=== PATIENT | female | born 1975 | race Caucasian/White ===

== ENCOUNTER 2025-02-07 08:47 | Emergency (ER) | payer MEDICARE, SELFPAY ==
[2025-02-07 08:59] VITALS: BP 91/62; PULSE 91; RESP 16; TEMP 37; O2SAT 96
--- NOTE | 2025-02-07 09:07 | PD.EDRME ---
Rapid Medical Screening Exam RME Arrival date/time: 02/07/25 08:47 50-year-old female with a history of TMJ, hypertension presents to the emergency room with a chief complaint of her right jaw out of her socket x 2 days. Patient states she was eating pizza bit down and felt a pop on the right side of her jaw. I have greeted and performed a focused initial assessment of this patient. A comprehensive ED assessment and evaluation of the patient, analysis of all test results, and completion of the medical decision making process will be conducted by additional ED providers. Chief Complaint: Dental/Oral/Throat Time Seen by Provider: 02/07/25 08:51 Vital signs: Vital Signs Temperature 98.6 F 02/07/25 08:59 Pulse Rate 91 02/07/25 08:59 Respiratory Rate 16 02/07/25 08:59 Blood Pressure 91/62 02/07/25 08:59 Pulse Oximetry (%) 96 02/07/25 08:59 Oxygen Delivery Method Room Air 02/07/25 08:59 Vital signs reviewed by provider: Yes
--- NOTE | 2025-02-07 09:34 | XR_ITS ---
Examination: Mandible 5 views TECHNIQUE: Rodríguez, lateral, right and left sagittal oblique, Agata views of the mandible 5 views Exam date and time: February 07, 2025 1007 hours INDICATIONS: Tenderness in the right jaw beginning today. FINDINGS: Mandible appears intact No cortical bone destruction No fracture No dislocation at the temporomandibular joints IMPRESSION: No fracture or dislocation If pain persists, consider CT maxillofacial study without contrast follow-up
--- NOTE | 2025-02-07 10:43 | PD.EDDENTL ---
ED Dental RME/HPI General Chief complaint: Dental/Oral/Throat Stated complaint: RIGHT JAW OUT OF SOCKET Time Seen by Provider: 02/07/25 08:51 Arrival date/time: 02/07/25 08:47 RME / HPI RME / HPI Narrative: 02/07/25 08:47 The patient is a 50-year-old female with significant past medical history of hypertension, Neuropathy, chronic pain, history of endometriosis and hysterectomy, multiple psychiatric issue including anxiety, depression and diverticulitis including TMJ presented to the emergency room with a chief complaint of her right jaw out of her socket x 2 days. She reported that she was eating pizza bit down and felt a pop on the right side of her jaw. She admitted mild headache, but denied any lightheadedness, nausea or vomiting, sore throat, chest pain, SOB, abdominal pain, any changes in bowel or bladder habit, or leg swelling. She also denied any fever or chills. Related Data Home Medications ?Medication ?Instructions ?Recorded ?Confirmed clonazepam 0.5 mg tablet 0.5 mg PO QDAY PRN Anxiety 04/30/20 09/25/23 fluoxetine 40 mg capsule 40 mg PO BID 11/10/21 09/25/23 gabapentin 600 mg tablet 600 mg PO TID 11/10/21 09/25/23 hydrocodone 10 mg-acetaminophen 1 tab PO Q6HR PRN Severe Pain 11/10/21 09/25/23 325 mg tablet (Scale Score 7-10) leuprolide 3.75 mg intramuscular 3.75 mg QMONTH 11/10/21 11/10/21 syringe kit (Lupron Depot) loratadine 10 mg tablet (Claritin) 10 mg PO QDAY 11/10/21 11/10/21 multivitamin 1 tab PO QDAY 11/10/21 11/10/21 norethindrone (contraceptive) 0.35 3.5 mg PO QDAY 11/10/21 11/10/21 mg tablet (Norlyda) pravastatin 10 mg tablet 20 mg PO HS 11/10/21 09/25/23 tizanidine 4 mg tablet 4 mg PO TID PRN Muscle Spasm 11/10/21 11/10/21 gabapentin 600 mg tablet 600 mg PO 3XD nerve pain 09/25/23 09/25/23 hydroxyzine HCl 50 mg tablet 50 mg PO QHSPRN PRN Anxiety 09/25/23 09/25/23 losartan 50 mg tablet 75 mg PO DAILY 09/25/23 09/25/23 Previous Rx's ?Medication ?Instructions ?Recorded diazepam 2 mg tablet 2 mg PO BID PRN muscle spasm #10 12/17/22 tabs dicyclomine 10 mg capsule 10 mg PO Q4HR PRN ABDOMINAL CRAMPS 09/27/23 #15 caps vancomycin 250 mg capsule 250 mg PO QID #40 caps 09/27/23 acetaminophen 500 mg tablet 500 mg PO Q6H PRN pain #60 tabs 02/07/25 ibuprofen 400 mg tablet 400 mg PO Q8H PRN pain #30 tabs 02/07/25 Allergies Allergy/AdvReac Type Severity Reaction Status Date / Time aluminum Allergy Severe Rash Verified 02/07/25 10:38 nickel Allergy Severe Rash Verified 02/07/25 10:38 erythromycin base Allergy Unknown UNKNOWN Verified 02/07/25 10:38 latex AdvReac Intermediate Rash Verified 02/07/25 10:38 tegaderm film AdvReac Severe RASH Uncoded 02/07/25 10:38 Review of Systems Review of Systems Systems Reviewed: All systems reviewed, normal except as documented ED Exam Narrative Physical exam: General: Middle-aged, cooperative female, no acute distress, Alert and Oriented x 3 HEENT: Moist mucous membranes, oropharynx clear, anteriorly protruded jaw with malalignment of upper and lower teeth Neck: Supple, No masses, No JVD CVS: S1S2 Regular rate and rhythm, No murmurs, rubs or gallops Lungs: Clear to auscultation with no accessory use, no wheeze no rhonchi Abd: Soft, NT/ND, +BS, no organomegaly Ext: No edema, warm and well perfused Skin: No rash Psych: Appropriate mood and affect Course Course Course Narrative: 10:45 AM the patient was examined, and mild manipulation was done to reduce the TMJ 10:48 AM ordered ketorolac 30 Mg IV x 1 for pain and 50 cc of D50 W x 1 for blood sugar of 74, along with apple juice 11:11 AM reviewed TMJ x-ray Quality Measures none Orders Category Date Time Status Insert IV NOW Care 02/07/25 10:36 Active XR mandible <4V Stat Exams 02/07/25 09:34 Completed Dextrose 50% Syr [D50w Syringe Abboject] Med 02/07/25 10:48 Discontinued 50 ml IV X1 ONE Ketorolac Inj [Toradol Inj] Med 02/07/25 10:48 Discontinued 30 mg IVP X1 ONE Pregabalin [Lyrica] Med 02/07/25 11:28 Discontinued 25 mg PO X1 ONE tiZANidine HCL [Zanaflex] Med 02/07/25 11:06 Discontinued 4 mg PO X1 ONE Vital Signs Vital signs: Vital Signs Temperature 98.6 F 02/07/25 08:59 Pulse Rate 91 02/07/25 08:59 Respiratory Rate 16 02/07/25 08:59 Blood Pressure 91/62 02/07/25 08:59 Pulse Oximetry (%) 96 02/07/25 08:59 Oxygen Delivery Method Room Air 02/07/25 08:59 Dental / Oral MDM Narrative MDM Narrative:: The patient is a 50-year-old female with significant past medical history of hypertension, Neuropathy, chronic pain, history of endometriosis and hysterectomy, multiple psychiatric issue including anxiety, depression and diverticulitis including TMJ presented to the emergency room with a chief complaint of her right jaw out of her socket x 2 days. She reported that she was eating pizza bit down and felt a pop on the right side of her jaw. She admitted mild headache, but denied any lightheadedness, nausea or vomiting, sore throat, chest pain, SOB, abdominal pain, any changes in bowel or bladder habit, or leg swelling. She also denied any fever or chills. The patient vitals were fairly stable with BP 91/62, pulse 91, RR 16, temperature 98.6 saturating 96% on room air. Fingerstick blood sugar was 74, x-ray TMJ 4 view was negative for any fracture or dislocation. Patient received ketorolac 30 Mg IV x 1, tizanidine 4 mg p.o. x 1, pregabalin 25 Mg p.o. x 1 for pain and D50 50 mL IV x 1 for blood sugar of 74. The patient was plan to discharge with following recommendations: Please follow-up with your PCP as soon as possible and request referral for TMJ specialist or ENT specialist; and TMJ physiotherapist You have been started on: -Ibuprofen 400 Mg every 8 hourly as needed for pain - Acetaminophen 500 Mg every 6 hourly as needed for pain Continue taking all other medicines as prescribed -Recommended to return back to emergency department if your symptoms persists or worsens Patient data External records reviewed:: [facility] previous records Clinical information provided by:: patient Social determinants that could affect healthcare access:: none Patient has the following chronic illnesses:: See above How is presenting disease/condition affected by chronic disease/condition?: caused by Evaluation data The following diagnostics were reviewed and interpreted by me:: radiology exam(s) Lab and/or radiology exams considered but not ordered:: X-ray TMJ 4 view revealed no fracture or dislocation. Interpretation Summary: X-ray TMJ 4 view revealed no fracture or dislocation. Medications / Prescriptions Medications or Prescriptions considered but not ordered:: None Medication administrations:: Medication Administration History Discontinued Medications Dextrose (Dextrose 50%-Water Inj 50 Ml Syringe) 50 ml IV X1 ONE Stop: 02/07/25 10:49 Last Admin: 02/07/25 10:56 Dose: 50 ml Documented By: NATAN Ketorolac Tromethamine (Ketorolac Inj 30 Mg/Ml Vial) 30 mg IVP X1 ONE Stop: 02/07/25 10:49 Last Admin: 02/07/25 10:55 Dose: 30 mg Documented By: NATAN Pregabalin (Pregabalin 25 Mg Capsule) 25 mg PO X1 ONE Stop: 02/07/25 11:29 Tizanidine HCl (Tizanidine Hcl 2 Mg Tablet) 4 mg PO X1 ONE Stop: 02/07/25 11:07 See above Consultations Consultation(s) initiated? (list below): No Consultation #1 (Physician, Specialty, Details): None Diagnosis Dental Differential Diagnosis: other (Displaced TMJ, TMJ syndrome) Most likely diagnosis given after review of the tests above:: Malignment of TMJ Admission Indicated Admission indicated?: not indicated Admission Request Was there a request for admission?: No Disposition Plan Disposition Plan: Discharge Discharge Attestation Discharge Attestation: The patient and all family members were given an opportunity to ask questions and understood the discharge instructions. Discharge instructions specifically effects, indications for sooner follow up or return to the emergency department, and the expected course of current diagnosis. Patient condition: Stable Discharge Plan Plan Patient Disposition: HOME (Self Care) Prescriptions/Referrals Prescriptions/Med Rec: New ibuprofen 400 mg tablet 400 mg PO Q8H MDD 3 PRN (Reason: pain ) Qty: 30 0RF acetaminophen 500 mg tablet 500 mg PO Q6H MDD 4 PRN (Reason: pain) Qty: 60 0RF No Action clonazepam 0.5 mg Tablet 0.5 mg PO QDAY MDD 1.0 PRN (Reason: Anxiety) multivitamin Tablet 1 tab PO QDAY fluoxetine 40 mg capsule 40 mg PO BID Patient Comments: TAKE 1 CAPSULE BY MOUTH TWICE DAILY gabapentin 600 mg tablet 600 mg PO TID Patient Comments: TAKE 1 TABLET BY MOUTH THREE TIMES DAILY NEEDED FOR NERVE PAIN Lupron Depot 3.75 mg Syringe Kit 3.75 mg QMONTH Rx Instructions: Will be discontinued after surgery tizanidine 4 mg tablet 4 mg PO TID PRN (Reason: Muscle Spasm) hydrocodone-acetaminophen 10-325 mg tablet 1 tab PO Q6HR PRN (Reason: Severe Pain (Scale Score 7-10)) Patient Comments: TAKE 1 TABLET BY MOUTH EVERY 6 HOURS NEEDED FOR SEVERE PAIN pravastatin 10 mg tablet 20 mg PO HS Patient Comments: TAKE 1 TABLET BY MOUTH EVERY DAY AT BEDTIME FOR CHOLESTEROL norethindrone (contraceptive) [Norlyda] 0.35 mg tablet 3.5 mg PO QDAY Rx Instructions: Will stop day of surgery loratadine [Claritin] 10 mg Tablet 10 mg PO QDAY diazepam 2 mg tablet 2 mg PO BID PRN (Reason: muscle spasm) Qty: 10 0RF gabapentin 600 mg tablet 600 mg PO 3XD Patient Comments: TAKE 1 TABLET BY MOUTH THREE TIMES DAILY NEEDED FOR NERVE PAIN losartan 50 mg tablet 75 mg PO DAILY Patient Comments: TAKE 1 AND 1/2 TABLETS BY MOUTH EVERY DAY FOR BLOOD PRESSURE hydroxyzine HCl 50 mg tablet 50 mg PO QHSPRN PRN (Reason: Anxiety) Patient Comments: TAKE 1 TABLET BY MOUTH AT BEDTIME NEEDED dicyclomine 10 mg Capsule 10 mg PO Q4HR PRN (Reason: ABDOMINAL CRAMPS) Qty: 15 0RF vancomycin 250 mg capsule 250 mg PO QID Qty: 40 0RF Referrals: Liam Hunter PA-C [Primary Care Provider] - In 1 week Problem List Clinical Impression: TMJ (temporomandibular joint syndrome) Patient/Caregiver Discharge Instructions Other Activity Instructions:: Please follow-up with your PCP as soon as possible and request referral for TMJ specialist or ENT specialist; and TMJ physiotherapist You have been started on: -Ibuprofen 400 Mg every 8 hourly as needed for pain - Acetaminophen 500 Mg every 6 hourly as needed for pain Continue taking all other medicines as prescribed -Recommended to return back to emergency department if your symptoms persists or worsens Education Materials: ED TMJ Syndrome, Helping Your Temporomandibular ..., TMD Self Care, TMD Pain Relief Print Language: Paraguayan Stand Alone Forms: [employer] Award Info., Patient Portal Info Letter
[2025-02-07] MEDS: KETOROLAC INJ 30 MG/ML VIAL IVP (10:55)
[2025-02-07] MEDS: DEXTROSE 50%-WATER INJ 50 ML SYRINGE IV (10:56)
[2025-02-07] MEDS: tiZANidine HCL 2 MG TABLET 4 MG PO (12:16)
[2025-02-07] MEDS: PREGABALIN 25 MG CAPSULE PO (12:16)
== END 2025-02-07 12:31 | disposition home or self-care (01) ==
PROVIDERS: Emergency Provider Family Medicine; PCP Physician Assistant
DX: M26.69 Other specified disorders of temporomandibular joint (principal)
CPT/HCPCS: 21480; 70100; 96374; 99284; J1885; A9270

== ENCOUNTER 2025-05-08 | Emergency (ER) | payer MEDICARE, SELFPAY ==
[2025-05-08] VITALS (7 sets, daily range): BP systolic 84–99; BP diastolic 56–73; PULSE 50–70; RESP 12–20; TEMP 36.4–37.3; O2SAT 94–100; BMI 21.6
--- NOTE | 2025-05-08 00:49 | XR_ITS ---
Examination: CT abdomen with intravenous contrast CT pelvis with intravenous contrast 2-D coronal reconstructions 2-D sagittal reconstructions Date and time of exam:May 08, 2025 0303 hours Comparison September 23, 2023 INDICATIONS: Painful rectum today. CTDI: vol (mGy) 6.57. DLP: (mGycm) 358 Technique: Multiple axial sections of the abdomen and pelvis have been obtained. 64 slice high-resolution scanner used. 3 mm axial sections have been obtained, post intravenous injection 60 cc [id number] 2-D sagittal, coronal reconstructions obtained. Low dose protocols were performed. One or more of the following dose reduction techniques were used; automated exposure control, adjustment of the mA and/or KV according to patient size, use of iterative reconstruction technique. Findings: No focal liver or splenic lesion No gallstones No pancreatic or adrenal mass No renal or ureteral calculi, no hydronephrosis Aorta normal size Normal appendix No bowel obstruction Colonic diverticulosis Urinary bladder intact Wall thickening involving the rectum Perianal inflammatory change, greater on the right side, suspicious for 10 x 13 mm early right perianal abscess Osseous structures intact IMPRESSION: Rectal wall thickening which may relate to proctitis Inflammatory change in the perianal region with findings suspicious for 10 x 13 mm early right perianal abscess Recommend MRI pelvis follow-up
[2025-05-08 01:12] LABS: Lactate (Lactic Acid) 1.8 mMol/L (0.4-2.0)
[2025-05-08 01:13] LABS: Basophils # (Auto) 0.1 Thou/mm3 (0.0-0.2); Basophils % (Auto) 1 % (0-2.5); Eosinophils # (Auto) 0.2 Thou/mm3 (0.0-0.5); Eosinophils % (Auto) 3 % (0-10); Hematocrit 34.2 % (36.0-46.0); Hemoglobin 11.4 g/dL (12.0-16.0); Immature Granulocytes Auto 0.01 Thou/mm3 (0.00-0.00); Lymphocytes # (Auto) 2.1 Thou/mm3 (1.0-4.8); Lymphocytes % (Auto) 40 % (10-50); Mean Corpuscular HGB Conc 33.3 g/dl (31.0-37.0); Mean Corpuscular Hemoglobin 31.7 pg (25.0-35.0); Mean Corpuscular Volume 95 fL (80-100); Monocytes # (Auto) 0.6 Thou/mm3 (0.0-0.8); Monocytes % (Auto) 12 % (0-12); Neutrophils # (Auto) 2.3 Thou/mm3 (1.8-7.7); Neutrophils % (Auto) 44 % (37-80); Nucleated Red Blood Cell # 0.00 Thou/mm3 (0.00-0.00); Nucleated Red Blood Cell % 0 /100 WBC (0); Platelet Count 154 Thou/mm3 (140-440); RDW Standard Deviation 45.5 fL (36.4-46.3); Red Blood Count 3.60 Miln/mm3 (4.00-5.20); White Blood Count 5.2 Thou/mm3 (3.6-11.0)
[2025-05-08 01:25] LABS: Sed Rate (ESR) 3 mm/hr (0-30)
[2025-05-08 01:43] LABS: Alanine Aminotransferase 26 U/L (10-49); Albumin, Serum 4.0 gm/dL (3.5-5.0); Albumin/Globulin Ratio 2.0 (1.2-2.2); Alkaline Phosphatase 57 U/L (46-116); Anion Gap 8 (7-16); Aspartate Amino Transferase 37 U/L (0-34); BUN/Creatinine Ratio 13 Ratio (12-20); Bilirubin,Total 0.3 mg/dL (0.3-1.2); Blood Urea Nitrogen 13 mg/dL (9-23); C-Reactive Protein 0.7 mg/dL (0.0-0.9); Calcium 9.0 mg/dL (8.3-10.6); Calcium (Corrected) 9.0 mg/dL (8.5-10.1); Carbon Dioxide 28.6 mMol/L (20.0-31.0); Chloride 105 mMol/L (98-107); Creatinine (Component) 1.0 mg/dL (0.6-1.3); Estimated Creatinine Clearance 59.9 mL/min (>60); Globulin 2.0 gm/dL (2.3-3.5); Glucose 89 mg/dL (74-106); Osmolality,Calculated 282 (275-295); Potassium 3.8 mMol/L (3.4-5.1); Procalcitonin 0.05 ng/ml (0.0-0.49); Sodium 142 mMol/L (136-145); Total Protein 6.0 gm/dL (5.7-8.2); eGFR > 60 See Note
[2025-05-08] MEDS: SODIUM CHLORIDE 0.9% 1000 ML 1,000 ML 999 ML IV ×2 (02:10→03:12)
[2025-05-08] MEDS: PIPER/TAZO 3.375 GM PREMIX 3.375 GM/50 ML BAG IV (02:12)
--- NOTE | 2025-05-08 03:46 | PD.EDSKIN ---
ED Skin Abcess FB-RME/HPI General Chief complaint: General Adult/Misc Complain Stated complaint: RECTAL PAIN LUMP Time Seen by Provider: 05/08/25 00:42 Arrival date/time: 05/08/25 00:00 50F with history of HTN, neuropathy, chronic pain, endometriosis and hysterectomy, multiple psychiatric issues including anxiety, depression, and diverticulitis/colitis with +C.diff presents to ED with several days of pain lump in anal area. Patient tried to pop it and it spread. Patient took a Oran prior to arrival in ED. Limitations: no limitations Related Data Home Medications ?Medication ?Instructions ?Recorded ?Confirmed clonazepam 0.5 mg tablet 0.5 mg PO QDAY PRN Anxiety 04/30/20 09/25/23 fluoxetine 40 mg capsule 40 mg PO BID 11/10/21 09/25/23 gabapentin 600 mg tablet 600 mg PO TID 11/10/21 09/25/23 hydrocodone 10 mg-acetaminophen 1 tab PO Q6HR PRN Severe Pain 11/10/21 09/25/23 325 mg tablet (Scale Score 7-10) leuprolide 3.75 mg intramuscular 3.75 mg QMONTH 11/10/21 11/10/21 syringe kit (Lupron Depot) loratadine 10 mg tablet (Claritin) 10 mg PO QDAY 11/10/21 11/10/21 multivitamin 1 tab PO QDAY 11/10/21 11/10/21 norethindrone (contraceptive) 0.35 3.5 mg PO QDAY 11/10/21 11/10/21 mg tablet (Norlyda) pravastatin 10 mg tablet 20 mg PO HS 11/10/21 09/25/23 tizanidine 4 mg tablet 4 mg PO TID PRN Muscle Spasm 11/10/21 11/10/21 gabapentin 600 mg tablet 600 mg PO 3XD nerve pain 09/25/23 09/25/23 hydroxyzine HCl 50 mg tablet 50 mg PO QHSPRN PRN Anxiety 09/25/23 09/25/23 losartan 50 mg tablet 75 mg PO DAILY 09/25/23 09/25/23 Previous Rx's ?Medication ?Instructions ?Recorded diazepam 2 mg tablet 2 mg PO BID PRN muscle spasm #10 12/17/22 tabs dicyclomine 10 mg capsule 10 mg PO Q4HR PRN ABDOMINAL CRAMPS 12/26/23 #15 caps vancomycin 250 mg capsule 250 mg PO QID #40 caps 09/27/23 acetaminophen 500 mg tablet 500 mg PO Q6H PRN pain #60 tabs 02/07/25 ibuprofen 400 mg tablet 400 mg PO Q8H PRN pain #30 tabs 02/07/25 metronidazole 500 mg tablet 500 mg PO BID 7 days #14 tabs 05/08/25 sulfamethoxazole 800 1 tab PO BID 7 days #14 tabs 05/08/25 mg-trimethoprim 160 mg tablet (Bactrim DS) Allergies Allergy/AdvReac Type Severity Reaction Status Date / Time aluminum Allergy Severe Rash Verified 05/08/25 00:10 nickel Allergy Severe Rash Verified 05/08/25 00:10 erythromycin base Allergy Unknown UNKNOWN Verified 05/08/25 00:10 latex AdvReac Intermediate Rash Verified 05/08/25 00:10 tegaderm film AdvReac Severe RASH Uncoded 05/08/25 00:10 Review of Systems Review of Systems Systems Reviewed: All systems reviewed, normal except as documented Constitutional Constitutional: Reports system reviewed and no additional complaints, except as documented, Denies fever(s) and Denies headache(s) ENT Ears, Nose, Mouth, and Throat: Denies disequilibrium and Denies headache(s) Cardiovascular Cardiovascular: Reports system reviewed and no additional complaints, except as documented, Denies chest pain and Denies dyspnea Respiratory Respiratory: Reports system reviewed and no additional complaints, except as documented, Denies cough and Denies dyspnea Gastrointestinal Gastrointestinal: Reports system reviewed and no additional complaints, except as documented, Denies abdominal pain, Denies nausea and Denies vomiting Integumentary/Breasts Skin/Breast: Reports as per HPI and Reports skin pain Neurologic Neurologic: Reports system reviewed and no additional complaints, except as documented, Denies confusion, Denies disequilibrium and Denies headache(s) Psychiatric Psychiatric: Denies confusion Past Medical History Past Medical History NEUROLOGIC: Positive Neurological Disorders and Head Trauma; Negative Seizures CARDIAC: Positive Cardiac Disorders, Edema (SANKET. FEET QWEEK), Hypertension and Hypotension (POSTURAL); Negative Congestive Heart Failure RESPIRATORY: Negative Chronic Obstructive Pulmonary Disease (COPD), Asthma, Tuberculosis or Sleep Apnea GASTROINTESTINAL: Positive Gastrointestinal Disorders and Irritable Bowel; Negative Hepatitis or Celiac Disease GENITOURINARY: Negative Genitourinary Disorders or Renal Disease REPRODUCTIVE: Positive Endometriosis and Previous Pregnancies MUSCULOSKELETAL: Positive Musculoskeletal Disorders (TMJ DISORDER), Arthritis, Degenerative Disk Disease and Fibromyalgia ENT: Positive Head Trauma ENDOCRINE: Positive Endocrine Disorders and Hypoglycemia; Negative Diabetes Mellitus Type 1 or Diabetes Mellitus Type 2 HEMATOLOGIC: Positive Blood Disorders and Anemia; Negative Sickle Cell Disease PSYCHO/SOCIAL: Positive Depression, Anxiety and Post Traumatic Stress Disorder OTHER HISTORY: Positive Autism and Clostridium Difficile; Negative Hospitalization, Autoimmune Disease, Shingles, Falls, Blood Transfusions, Blood Transfusion Reaction, Anesthesia Reactions, Chemotherapy, Radiation Therapy, MRSA, Chicken Pox, Measles, Mumps or Cancer Family History FAMILY HISTORY: Positive Family Psychiatric Problems, Family Respiratory Disorders, Family Cardiac Disorders, Family Cancer and Family Surgery; Negative Family Gastrointestinal Problems or Family Anesthesia Reaction Surgical History SURGICAL: Positive Oral Surgery, Hysterectomy, Tubal Ligation and Section Social History SMOKING STATUS: Never smoker SECOND HAND EXPOSURE: No SUBSTANCE USE: does not use OCCUPATION: Disability ED Exam General Limitations: Present no limitations General appearance: Present alert and in no apparent distress Head Head exam: Present atraumatic Eye Eye exam: Present normal appearance, PERRL and EOMI ENT ENT exam: Present normal exam, normal oropharynx and mucous membranes moist Neck Neck exam: Present normal inspection, full ROM and trachea midline Chest Chest inspection: Present normal inspection and symmetric chest wall rise Respiratory Respiratory exam: Present normal lung sounds bilaterally Cardiovascular Cardiovascular exam: Present regular rate, normal rhythm and normal heart sounds Abdominal Exam Abdominal exam: Present soft and normal bowel sounds Rectal Exam Rectal exam: Present other (perianal abscess) Extremities Exam Extremities exam: Present normal inspection and full ROM Back Exam Back exam: Present normal inspection and full ROM Neurological Exam Neurological exam: Present alert, oriented X3 and CN II-XII intact Psychiatric Psychiatric exam: Present normal affect and normal mood Skin Skin exam: Present warm, dry, intact and normal color Course Quality Measures none Orders Category Date Time Status CT Screening NOW Care 05/08/25 00:50 Completed EKG (ED ONLY) *Do not use* NOW Care 05/08/25 04:35 Completed Insert IV NOW Care 05/08/25 00:[address] abdomen pelvis w con Stat Exams 05/08/25 00:49 Completed EKG (ED Only) Stat Exams 05/08/25 04:35 Draft Blood Culture (Lab) Stat Lab 05/08/25 01:03 Received CBC Stat Lab 05/08/25 00:58 Completed CMP [Comprehensive Metabolic Panel] Stat Lab 05/08/25 00:58 Completed CRP [C-Reactive Protein] Stat Lab 05/08/25 00:58 Completed ESR [Sed Rate (ESR)] Stat Lab 05/08/25 00:58 Completed Free T4 (Free Thyroxine) Stat Lab 05/08/25 00:58 Completed Lactate (Lactic Acid) Stat Lab 05/08/25 00:58 Completed Procalcitonin Stat Lab 05/08/25 00:58 Completed TSH [Thyroid Stimulating Hormone] Stat Lab 05/08/25 00:58 Completed Ketorolac Inj [Toradol Inj] Med 05/08/25 03:27 Discontinued 30 mg IVP X1 ONE Piper/Tazo 3.375 gm Premix [Zosyn] Med 05/08/25 00:49 Discontinued 3.375 gm in 50 ml IV X1 Ringers Lactated 1000 ml [Lactated Ringers] 1,000 ml Med 05/08/25 05:26 Discontinued IV 999 mls/hr Sodium Chloride 0.9% 1000 ml [Ns] 1,000 ml Med 05/08/25 00:44 Discontinued IV 999 mls/hr Sodium Chloride 0.9% 1000 ml [Ns] 1,000 ml Med 05/08/25 02:26 Discontinued IV 999 mls/hr Vital Signs Vital signs: Vital Signs Temperature 97.8 F 05/08/25 00:33 Pulse Rate 70 05/08/25 00:33 Respiratory Rate 20 05/08/25 00:33 Blood Pressure 90/58 L 05/08/25 00:33 Pulse Oximetry (%) 95 05/08/25 00:33 Oxygen Delivery Method Room Air 05/08/25 00:33 O2 at 95% on RA and WNLs Skin / Abscess / Foreign Body MDM Narrative MDM Narrative:: 50F with history of HTN, neuropathy, chronic pain, endometriosis and hysterectomy, multiple psychiatric issues including anxiety, depression, and diverticulitis/colitis with +C.diff presents to ED with several days of pain lump in anal area. Patient tried to pop it and it spread. Patient took a Oran prior to arrival in ED. Physical exam with air pollution specialist reveals (2 tender lumps in perianal/rectal area about 1-2 cm in size). Patient is afebrile, alert, but appears to be in pain. BP is on the low side. EKG is NSR of 60. No leukocytosis. CMP unremarkable. ESR/CRP/Procal/Lactate normal. CT reveals 1x2 cm abscess in perianal area. Spoke to Dr. Ahumada, who states patient can receive ABX and go home. After 2Ls NS, BP improved but still somewhat low around 100 systolic. Will give 3rd L IVF. TSH/free T4 mildly low. Patient has thyroid biopsy already scheduled. Will discharge with Metro and Bactrim, since patient got C.diff with Cipro. Patient data External records reviewed:: [facility] previous records Clinical information provided by:: patient Social determinants that could affect healthcare access:: mental health Patient has the following chronic illnesses:: HTN, neuropathy, chronic pain, endometriosis and hysterectomy, multiple psychiatric issues including anxiety, depression, and diverticulitis/colitis How is presenting disease/condition affected by chronic disease/condition?: exacerbated by Evaluation data The following diagnostics were reviewed and interpreted by me:: lab results and radiology exam(s) Lab and/or radiology exams considered but not ordered:: ordered Interpretation Summary: above Medications / Prescriptions Medications or Prescriptions considered but not ordered:: ordered Medication administrations:: Medication Administration History Discontinued Medications Sodium Chloride (Ns) 1,000 mls @ 999 mls/hr IV .Q1H1M ONE Stop: 05/08/25 01:44 Last Infusion: 05/08/25 03:10 Dose: Infused Documented By: Admin: 05/08/25 02:10 Dose: 999 mls/hr Documented By: CVL Piperacillin/Tazobactam/Dextrose (Zosyn) 3.375 gm in 50 mls @ 100 mls/hr IV X1 ONE Stop: 05/08/25 01:18 Last Infusion: 05/08/25 02:55 Dose: Infused Documented By: Admin: 05/08/25 02:12 Dose: 100 mls/hr Documented By: CVL Sodium Chloride (Ns) 1,000 mls @ 999 mls/hr IV .Q1H1M ONE Stop: 05/08/25 03:26 Last Infusion: 05/08/25 05:39 Dose: Infused Documented By: Admin: 05/08/25 03:12 Dose: 999 mls/hr Documented By: CG Lactated Ringer's (Lactated Ringers) 1,000 mls @ 999 mls/hr IV .Q1H1M ONE Stop: 05/08/25 06:26 Last Infusion: 05/08/25 06:20 Dose: Infused Documented By: Admin: 05/08/25 05:42 Dose: 999 mls/hr Documented By: CVJoni Ketorolac Tromethamine (Ketorolac Inj 30 Mg/Ml Vial) 30 mg IVP X1 ONE Stop: 05/08/25 03:28 Last Admin: 05/08/25 04:07 Dose: Not Given Documented By: CG Non-Admin Reason: Patient Refused above Consultations Consultation(s) initiated? (list below): Yes Diagnosis Skin/Abscess Differential Diagnosis: abscess of skin or subcutaneous tissue, viral exanthem, dermatophytosis, urticaria, herpes zoster, allergic reaction to drug, cellulitis, eczema, insect bites, impetigo and contact dermatitis Most likely diagnosis given after review of the tests above:: perianal abscess Admission Indicated Admission indicated?: not indicated Admission Request Was there a request for admission?: No Disposition Plan Disposition Plan: Discharge Discharge Attestation Discharge Attestation: The patient and all family members were given an opportunity to ask questions and understood the discharge instructions. Discharge instructions specifically effects, indications for sooner follow up or return to the emergency department, and the expected course of current diagnosis. Patient condition: Stable Discharge Plan Plan Patient Disposition: HOME (Self Care) Discharge Disposition comment: Stable Prescriptions/Referrals Prescriptions/Med Rec: New metronidazole 500 mg tablet 500 mg PO BID 7 Days Qty: 14 0RF sulfamethoxazole-trimethoprim [Bactrim DS] 800-160 mg tablet 1 tab PO BID 7 Days Qty: 14 0RF No Action clonazepam 0.5 mg Tablet 0.5 mg PO QDAY MDD 1.0 PRN (Reason: Anxiety) multivitamin Tablet 1 tab PO QDAY fluoxetine 40 mg capsule 40 mg PO BID Patient Comments: TAKE 1 CAPSULE BY MOUTH TWICE DAILY gabapentin 600 mg tablet 600 mg PO TID Patient Comments: TAKE 1 TABLET BY MOUTH THREE TIMES DAILY NEEDED FOR NERVE PAIN Lupron Depot 3.75 mg Syringe Kit 3.75 mg QMONTH Rx Instructions: Will be discontinued after surgery tizanidine 4 mg tablet 4 mg PO TID PRN (Reason: Muscle Spasm) hydrocodone-acetaminophen 10-325 mg tablet 1 tab PO Q6HR PRN (Reason: Severe Pain (Scale Score 7-10)) Patient Comments: TAKE 1 TABLET BY MOUTH EVERY 6 HOURS NEEDED FOR SEVERE PAIN pravastatin 10 mg tablet 20 mg PO HS Patient Comments: TAKE 1 TABLET BY MOUTH EVERY DAY AT BEDTIME FOR CHOLESTEROL norethindrone (contraceptive) [Norlyda] 0.35 mg tablet 3.5 mg PO QDAY Rx Instructions: Will stop day of surgery loratadine [Claritin] 10 mg Tablet 10 mg PO QDAY diazepam 2 mg tablet 2 mg PO BID PRN (Reason: muscle spasm) Qty: 10 0RF gabapentin 600 mg tablet 600 mg PO 3XD Patient Comments: TAKE 1 TABLET BY MOUTH THREE TIMES DAILY NEEDED FOR NERVE PAIN losartan 50 mg tablet 75 mg PO DAILY Patient Comments: TAKE 1 AND 1/2 TABLETS BY MOUTH EVERY DAY FOR BLOOD PRESSURE hydroxyzine HCl 50 mg tablet 50 mg PO QHSPRN PRN (Reason: Anxiety) Patient Comments: TAKE 1 TABLET BY MOUTH AT BEDTIME NEEDED dicyclomine 10 mg Capsule 10 mg PO Q4HR PRN (Reason: ABDOMINAL CRAMPS) Qty: 15 0RF vancomycin 250 mg capsule 250 mg PO QID Qty: 40 0RF ibuprofen 400 mg tablet 400 mg PO Q8H MDD 3 PRN (Reason: pain ) Qty: 30 0RF acetaminophen 500 mg tablet 500 mg PO Q6H MDD 4 PRN (Reason: pain) Qty: 60 0RF Referrals: Liam Hunter PA-C [Primary Care Provider] - In 1 week Problem List Clinical Impression: Abscess, perianal Patient/Caregiver Discharge Instructions Education Materials: ED ABSCESS Julieta-Anal Abx only Additional Instructions: Please follow-up with PCP within 24-48 hours and return immediately if symptoms worsen. Print Language: Croatian Stand Alone Forms: Patient Portal Info Letter GUERO/ALBERT Supervising Physician ALICIA Supervising Physician: Dr. Balderas
--- NOTE | 2025-05-08 04:28 | PRELIM_ITS ---
CT scan of the abdomen and pelvis with intravenous contrast (axial sections with sagittal and coronal reformats) May 08, 2025 at 0303 hours Clinical History: Perianal abscess. Comparison: Compared with the prior study dated May 09, 2020. Findings: Bibasilar streaky atelectasis is present. Fatty infiltration of the liver is noted. There is a 1 cm cyst in the right kidney . The gallbladder, pancreas, spleen and adrenals are unremarkable. No evidence of bowel obstruction. There are multiple colonic diverticula without evidence of diverticulitis. The appendix is within normal limits (coronal images 49-53). A moderate amount of fecal material is present in the colon. There is mild wall thickening of the rectum and annus . There is fat stranding in bilateral gluteal regions . There is inflammatory changes in the right perianal region with possible 1 x 2 cm collection. There is no air loculi. The urinary bladder is incompletely distended with apparent wall thickening . There is no free fluid or free air. Degenerative changes are identified in the spine. There is a 1x1.5 cm hypodense lesion in the left adductor muscle . Impression: No evidence of bowel obstruction, free air or abscess. Possible proctitis. Recommend clinical correlation and follow-up. Inflammatory changes in the right perianal region with possible 1 x 2 cm collection. Recommend further evaluation with MRI, as clinically indicated. Report Electronically Signed By: Carrington Meehan 05/08/2025 4:27:22 AM [EST]
--- NOTE | 2025-05-08 04:35 | EKG_ITS ---
[facility] Test Date: 2025-05-08 Pat Name: ANAM GAMINO Department: Room: - Gender: Female Toby Maker: : 1975 Requested By: Chris Dunne Order Number: [id number] Reading MD: Chris Dunne Measurements Intervals [place] Rate: 60 P: 69 ME: 175 QRS: 58 QRSD: 93 T: 43 QT: 423 QTc: 423 Interpretive Statements SINUS RHYTHM NONSPECIFIC T-WAVE ABNORMALITY Compared to ECG 11/10/2021 10:48:09 T-wave abnormality now present /store/S0/[id number].pdf
[2025-05-08 05:34] LABS: Free T4 (Free Thyroxine) 0.84 ng/dL (0.89-1.76); Thyroid Stimulating Hormone 0.39 uIU/mL (0.55-4.78)
[2025-05-08] MEDS: RINGERS LACTATED 1000 ML 1,000 ML 999 ML IV (05:42)
== END 2025-05-08 07:10 | disposition home or self-care (01) ==
PROVIDERS: Physician Assistant; Emergency Provider Emergency Medicine; PCP Physician Assistant
DX: K61.0 Anal abscess (principal); R94.31 Abnormal electrocardiogram [ECG] [EKG]; I10 Essential (primary) hypertension; A04.72 Enterocolitis due to Clostridium difficile, not specified as recurrent
CPT/HCPCS: 36415; 74177; 80053; 81025; 83605; 84145; 84439; 84443; 85025; 85652; 86140; 87040; 93005; 96360; 96361; 96365; 99283; A4649; J2543; J7030; J7120; Q9967

== ENCOUNTER 2025-07-10 09:16 | Day surgery (SDC) | payer MEDICARE, SELFPAY ==
--- NOTE | 2025-07-08 07:00 | EKG_ITS ---
[facility] Test Date: 2025-07-08 Pat Name: ANAM GAMINO Department: Room: - Gender: Female Paper Twister: CLOLEEN : 1975 Requested By: Poncho Brownlee Order Number: [id number] Reading MD: Poncho Brownlee Measurements Intervals [place] Rate: 64 P: 71 FL: 141 QRS: 69 QRSD: 83 T: 65 QT: 432 QTc: 446 Interpretive Statements SINUS RHYTHM Compared to ECG 05/08/2025 04:45:03 T-wave abnormality no longer present /store/S0/[id number].pdf
[2025-07-08 08:21] VITALS: BMI 20.7
[2025-07-08 13:23] LABS: Basophils # (Auto) 0.1 Thou/mm3 (0.0-0.2); Basophils % (Auto) 1 % (0-2.5); Eosinophils # (Auto) 0.1 Thou/mm3 (0.0-0.5); Eosinophils % (Auto) 2 % (0-10); Hematocrit 40.6 % (36.0-46.0); Hemoglobin 13.6 g/dL (12.0-16.0); Immature Granulocytes Auto 0.02 Thou/mm3 (0.00-0.00); Lymphocytes # (Auto) 2.1 Thou/mm3 (1.0-4.8); Lymphocytes % (Auto) 28 % (10-50); Mean Corpuscular HGB Conc 33.5 g/dl (31.0-37.0); Mean Corpuscular Hemoglobin 32.5 pg (25.0-35.0); Mean Corpuscular Volume 97 fL (80-100); Monocytes # (Auto) 0.7 Thou/mm3 (0.0-0.8); Monocytes % (Auto) 9 % (0-12); Neutrophils # (Auto) 4.6 Thou/mm3 (1.8-7.7); Neutrophils % (Auto) 60 % (37-80); Nucleated Red Blood Cell # 0.00 Thou/mm3 (0.00-0.00); Nucleated Red Blood Cell % 0 /100 WBC (0); Platelet Count 240 Thou/mm3 (140-440); RDW Standard Deviation 47.2 fL (36.4-46.3); Red Blood Count 4.19 Miln/mm3 (4.00-5.20); White Blood Count 7.6 Thou/mm3 (3.6-11.0)
[2025-07-08 13:30] LABS: Anion Gap 9 (7-16); BUN/Creatinine Ratio 18 Ratio (12-20); Blood Urea Nitrogen 16 mg/dL (9-23); Calcium 10.4 mg/dL (8.3-10.6); Carbon Dioxide 32.4 mMol/L (20.0-31.0); Chloride 99 mMol/L (98-107); Creatinine (Component) 0.9 mg/dL (0.6-1.3); Estimated Creatinine Clearance 66.2 mL/min (>60); Glucose 141 mg/dL (74-106); Osmolality,Calculated 282 (275-295); Potassium 4.7 mMol/L (3.4-5.1); Sodium 140 mMol/L (136-145); eGFR > 60 See Note
[2025-07-08 13:46] LABS: INR 0.9 (0.9-1.3); Partial Thromboplastin Time 24.8 Seconds (22.0-36.0); Prothrombin Time 9.9 Seconds (9.0-12.2)
[2025-07-10] VITALS (11 sets, daily range): BP systolic 81–113; BP diastolic 49–85; PULSE 54–70; RESP 13–22; TEMP 37.2–37.4; O2SAT 91–97
[2025-07-10] MEDS: fentaNYL CIT INJ 50 mCg/ML AMP 2ML 25 MCG IVP (11:50)
--- NOTE | 2025-07-10 12:00 | PD.CARDCATH ---
Cardiac Cath Procedure Procedure Name Date of procedure: 07/10/2025 MUSEUM EDUCATOR: Poncho Brownlee MD PROCEDURE PERFORMED: 1. Left heart cardiac catheterization- Left and right coronary angiograms with LVEDP measurement and left ventriculogram 2. Ultrasound-guided access of the right radial artery 3. Conscious sedation for 30 minutes.. Procedure Narrative HISTORY AND INDICATIONS: 50-year-old female with past medical history of Fibromyalgia, Endometriosis, Degenerative disc disease, Pinched nerves, C diff, 2021, Diverticulitis, Septicemia, who presents with palpitations, chest pain, and pressure. Patient was seen in my office for evaluation of chest pain, had ischemic cardiac work up and NST showed abnormal TID rario at 1.9. Patient was brought in for an elective cardiac catheterization. Patient was explained the risk benefits and alternatives of performing a left heart cardiac catheterization including the risk of bleeding, heart attack, stroke and in detail and the agreeable for the procedure. Consent signed, placed in the chart and H&P updated. DESCRIPTION OF PROCEDURE: The patient was brought to the cardiac catheterization lab and all asceptic precautions were followed. Patient was given 1 Mg of Versed and 50 mcg of fentanyl for moderate conscious sedation. 2 mL of lidocaine was given in the right wrist. The right radial artery was accessed via the ultrasound guidance as well as micropuncture technique. A 6 [place] glide sheath was introduced. We then used a 5 [place] TIG 4 catheter to perform the left and right coronary angiograms as well as a left ventriculogram which showed the following findings. 1. Left ventricular ejection fraction was normal at 55-60% without any regional wall motion abnormalities. LVEDP was normal at 11 mmHg. There was no significant transvalvular aortic gradient. 2. Right dominant circulation 3. Left main artery is a large-caliber vessel gives rise to LAD, LCX and without any significant disease. 4. LAD is a large sized artery, gives rise to a medium size diagonal and without show any significant disease. 5. LCx is a large sized artery, gives rise to a medium OM1 and small OM2 without any significant disease. 6. RCA is a large artery, gives rise to a medium RPDA and RPL without any significant disease. A radial band was used to achieve the hemostasis of the right radial artery access. Patient will be monitored in the cardiac medical supply technician for the next 2 to 3 hours and will be discharged home / telemetry later today if hemodynamically stable. Complications: None Specimens: None Blood loss: Estimated 5-10 ml Summary/findings: 1. Abnormal Stress test: LHC showed normal coronaries with only minimal luminal irregularities and no angiographically significant obstruction. 2. LVEF normal at 55-60% and LVEDP normal at 11 mmHg. No significant transvalvular aortic gradient. Recommendations: 1. Recommend aggressive medical treatment and aggressive risk factor modification. 2. Recommended no lifting more than 5 pounds for next 7-10 days and follow up in my office in 7 days. Poncho Brownlee MD Interventional Cardiology.
== END 2025-07-10 14:20 | disposition home or self-care (01) ==
PROVIDERS: PCP Physician Assistant; Referring Provider Internal Medicine Cardiovascular Disease; Visit Provider Internal Medicine Cardiovascular Disease
PROC: (CPT 93458; principal; 2025-07-10 10:30)
DX: R94.39 Abnormal result of other cardiovascular function study (principal); R07.9 Chest pain, unspecified; R00.2 Palpitations; I10 Essential (primary) hypertension; E78.5 Hyperlipidemia, unspecified; Z87.891 Personal history of nicotine dependence; Z87.898 Personal history of other specified conditions; Z79.899 Other long term (current) drug therapy; Z79.82 Long term (current) use of aspirin; Z01.810 Encounter for preprocedural cardiovascular examination
CPT/HCPCS: 93458; 36415; 80048; 85025; 85610; 85730; 93005; 99152; A4649; C1769; C1887; C1894; J0168; J0461; J1643; J2250; J2312; J2371; J3010; J3490; Q9967; J2305